=== PATIENT | male | born 1990 | race African-American/Black ===

== ENCOUNTER 2016-08-13 00:37 | Emergency (ER) | payer OTHER ==
[~2016-08-13] VITALS: Ht 180.3 cm; Wt 92.9 kg
[2016-08-13 00:37] VITALS: TEMP 36.4; O2SAT 95; Ht 180.3 cm; Wt 92.9 kg
[2016-08-13 01:13] LABS: BUN/CREATININE RATIO 7.6 (10-20); CALCIUM 8.4 mg/dl (8.5-10.1); CREATININE 1.2 mg/dl (0.60-1.40); POTASSIUM 3.6 mmol/L (3.5-5.1)
--- NOTE | 2016-08-13 06:30 | EMERGENCY ROOM VISIT NOTE ---
History First contact with patient: 00:38 Chief Complaint: ALCOHOL OVERDOSE Stated Complaint: ALCOHOL OVERDOSE Nursing Triage Summary: Patient presents to ER via EMS. Patient is responsive and awake. Per EMS, a group of individuals called police when they saw the patient walking, staggering and falling over down at [facility]. History of Present Illness The patient is a 26 year old male who presents to the Emergency Room the [facility] for evaluation of a possible alcohol overdose. The patient states that he is unsure why he was brought here. He does admit to drinking liquor tonight. He denies any drug use. He denies any trauma. Per EMS, the patient was staggering while walking home tonight. The patient denies any complaints at this time. He denies any nausea, vomiting, chest pain, headache or neck pain. Review of Systems A complete 10-point Review of Systems was discussed with the patient, with pertinent positives and negatives listed in the History of Present Illness. All remaining Review of Systems questions can be considered negative unless otherwise specified. Social History Smoking Status: Never Smoker Current/Historical Medications No Active Prescriptions or Reported Meds Allergies Coded Allergies: No Known Allergies (Unverified , 08/13/16) Physical Exam Vital Signs Date Time Temp Pulse Resp B/P Pulse Ox O2 Delivery O2 Flow Rate FiO2 08/13/16 08:55 103 18 147/62 98 Room Air 08/13/16 07:07 146/90 08/13/16 06:58 118 18 99/51 97 Room Air 08/13/16 05:41 72 18 101/48 93 Room Air 08/13/16 04:14 83 08/13/16 04:13 85 18 98/53 94 Room Air 08/13/16 02:32 87 14 98 08/13/16 02:02 72 16 94 08/13/16 01:57 126/67 08/13/16 01:37 80 18 90 08/13/16 01:07 71 16 93 08/13/16 00:56 68 20 116/67 95 Room Air 08/13/16 00:45 114/67 08/13/16 00:44 91 08/13/16 00:37 36.4 88 20 114/67 95 Room Air 08/13/16 00:37 95 Room Air Physical Exam VITALS: Vitals are noted on the nurse's note and reviewed by myself. Vital signs stable. GENERAL: This is a 26-year-old male, lying in bed, appears to be visibly intoxicated, smells of ETOH. SKIN: The skin was without erythema, edema, or bruising. HEAD: Normocephalic atraumatic. EARS: External auditory canals clear. No hemotympanum. EYES: Pupils equal round and reactive to light and accommodation. NOSE: No deformities noted. MOUTH: No loose or chipped teeth. NECK: No cervicle spine tenderness. HEART: Regular rate and rhythm without murmurs gallops or rubs. LUNGS: Clear to auscultation bilaterally without wheezes, rales or rhonchi. ABDOMEN: Soft, nontender. MUSCULOSKELETAL: Full range of motion throughout. Strength intact throughout. NEURO: Patient was alert and oriented to person place and time. Speech slurred. Gross sensation intact. Patient cooperative with examiner. Medical Decision & Procedures Laboratory Results 08/13/16 00:47 Test 08/13/16 00:47 Anion Gap 10.0 mmol/L (3-11) Est Creatinine Clear Calc Drug Dose 109.6 ml/min Estimated GFR () 96.8 Estimated GFR (Non- 83.5 BUN/Creatinine Ratio 7.6 (10-20) Calcium Level 8.4 mg/dl (8.5-10.1) Ethyl Alcohol mg/dL 301.0 mg/dl (0-3) Medical Decision Differential diagnosis includes alcohol intoxication, drug intoxication, trauma , among others. The patient was evaluated as above. He is visibly intoxicated but is alert, oriented and cooperative. Alcohol was found to be 301. Patient is mildly hyperglycemic likely secondary to drinking. There is no evidence of trauma. The patient was placed on the cardiac cath lab radiology technologist and left to sleep in the prone position. When the patient had woken up, he was able to find a sober friend to come and pick him up. This friend did agree to take responsibility for the patient. The patient verbalized his understanding of the assessment and treatment plan and was discharged home in good condition. Impression Primary Impression: Alcoholic intoxication Departure Information Dispostion Home / Self-Care Condition GOOD Prescriptions No Active Prescriptions or Reported Meds Patient Instructions [facility]: [employer] Students and Alcohol Related Visits, [facility]ly [facility] Additional Instructions Do not drink any alcohol today. For pain control, you can use the following [id number] medicines (if >12 yo): - Regular strength (325mg/tab) Tylenol (acetaminophen) 2 tabs every 4-6 hours as needed. Do not exceed 12 tablets in a 24 hour period. Avoid taking more than 4 grams (4000 mg) of Tylenol per day. This includes any other sources of acetaminophen you may take on a regular basis. - Regular strength (200 mg/tab) Advil (ibuprofen) 1-2 tabs every 4-6 hours as needed. Do not exceed a dose of 3200 mg per day. Rest and drink plenty of fluids. Follow-up with your family doctor as needed. Problem Qualifiers Primary Impression: Alcoholic intoxication Complication of substance-induced condition: uncomplicated Qualified Codes: F10.120 - Alcohol abuse with intoxication, uncomplicated
[2016-08-13 08:55] VITALS: BP 147/62; PULSE 103; O2SAT 98
== END 2016-08-13 09:01 | disposition home or self-care (01) ==
LOC: C.EDA 00:38
DX: F10.120 Alcohol abuse with intoxication, uncomplicated (principal)